=== PATIENT | female | born 1965 | race Caucasian/White ===

== ENCOUNTER 2016-12-26 15:29 | Emergency (ER) | payer OTHER ==
[~2016-12-26] VITALS: Wt 80.0 kg
--- NOTE | 2016-12-26 18:00 | ERD ---
ER Documentation Chief Complaint Date/Time DATE: 12/26/16 TIME: 17:52 Chief Complaint PAINFUL VAG BLEEDING SINCE 2 DAYS AGO. MILD AP. NO DYSURIA NOTED. HPI This is a 50 year old female who is perimenopausal without any medical problems presenting to the emergency room complaining of vaginal bleeding for 2 days. Patient states that yesterday she used about 9 pads per day, changing her pad every hour and today she states that it has been coming and going,using 4 pads so far. Patient states that yesterday she had right-sided pelvic pain and dizziness but it has resolved at this moment. She denies any fever, dysuria. She states that her last menstrual period was September 2015. She has not taken any medications for this. Past surgeries include 2 C-sections and tubal ligation. ROS All systems reviewed and are negative except as per history of present illness. Medications Home Meds Active Scripts Ciprofloxacin Hcl* (Ciprofloxacin Hcl*) 500 Mg Tablet, 500 MG PO BID for 7 Days , TAB Prov:MARQUISE REGAN PA-C 12/26/16 Phenazopyridine Hcl* (Pyridium*) 200 Mg Tab, 200 MG PO TID Y for URINARY PAIN, # 6 TAB Prov:MARQUISE REGAN PA-C 12/26/16 Ibuprofen* (Motrin*) 600 Mg Tab, 600 MG PO Q6H Y for PAIN AND OR ELEVATED TEMP, #30 TAB Prov:MARQUISE REGAN PA-C 12/26/16 Reported Medications [None] No Conflict Check 12/08/09 Allergies Allergies: Coded Allergies: Penicillins (Verified Allergy, Mild, RASH, 06/01/13) PMhx/Soc History of Surgery: Yes (C SECTION; TUBE TIED) Anesthesia Reaction: No Hx Neurological Disorder: No Hx Respiratory Disorders: No Hx Cardiac Disorders: No Hx Miscellaneous Medical Probl: Yes (ULCER) Hx Alcohol Use: No Hx Substance Use: No Hx Tobacco Use: No Smoking Status: Never smoker Physical Exam Vitals Vital Signs Date Time Temp Pulse Resp B/P Pulse Ox O2 Delivery O2 Flow Rate FiO2 12/26/16 15:32 98.6 100 16 120/80 98 Physical Exam GENERAL: well-developed/well-nourished, in no apparent distress, non-toxic appearing HENT: NC/AT, moist mucous membranes EYES: Conjunctiva normal NECK: Supple, no lymphadenopathy PULM: CTA bilaterally, no rales, rhonchi, or wheezing heard CV: Normal S1S2, RRR, good capillary refill GI: Soft, non-distended, non-tender to palpation Normal bowel sounds, no masses or organomegaly felt on exam No gross peritonitis, no bruits Negative Rovsing, negative Bullard, negative McBurney's point, Negative CVAT BACK: No masses EXT: No clubbing, cyanosis, or edema NEURO: Alert and Orientated SKIN: Intact, normal turgor PSYCH: Normal mood and mentation Result Diagram: 12/26/16 1806 Results 24 hrs Laboratory Tests Test 12/26/16 17:55 12/26/16 18:06 Urine Bacteria FEW Urine Bilirubin NEGATIVE Urine Clarity BLOODY Urine Color DK. RED Urine Glucose NEGATIVE% Urine Hemoglobin 3+ Urine Ketones TRACE Urine Leukocyte Esterase 1+ Urine Microscopic RBC >200/HPF Urine Microscopic WBC 2-5/HPF Urine Nitrite POSITIVE Urine Specific Howard >=1.030 Urine Total Protein 2+ Urine Urobilinogen 2.0 E.U./dL Urine pH 5.0 Basophils # 0.110^3/ul Basophils % 0.7% Eosinophils # 0.110^3/ul Eosinophils % 1.9% Hematocrit 37.2% Hemoglobin 12.6g/dl Lymphocytes # 2.710^3/ul Lymphocytes % 39.2% Mean Corpuscular Hemoglobin 31.3pg Mean Corpuscular Hemoglobin Concent 33.9g/dl Mean Corpuscular Volume 92.3fl Mean Platelet Volume 9.0fl Monocytes # 0.410^3/ul Monocytes % 5.8% Neutrophils # 3.610^3/ul Neutrophils % 52.1% Nucleated Red Blood Cells # 0.010^3/ul Nucleated Red Blood Cells % 0.0/100WBC Platelet Count 66876^3/UL Red Blood Count 4.0310^6/ul Red Cell Distribution Width 13.3% White Blood Count 6.910^3/ul Non-OB Pelvic Ultrasound: 1. Uterine leiomyomata, the largest approximately 4.9 cm and intramural. 2. Endometrial thickness of 8.3 mm is increased presuming a post menopausal state. Differential diagnostic possibilities would include endometrial hyperplasia, polyps, submucosal leiomyoma and endometrial carcinoma. Correlation to the patient's menstrual status is recommended. 3. Sonographically unremarkable left ovary. Nonvisualization of the right ovary. Procedures/MDM This is a 50 year old female who is perimenopausal without any medical problems presenting to the emergency room complaining of vaginal bleeding for 2 days. Which is likely due to uterine fibroid and a urinary tract infection. I have a low suspicion for anemia, pyelonephritis, nephrolithiasis. Patient appears well , she has stable vital signs. Her vaginal bleeding appears to be getting better today compared to yesterday when it started. Her abdominal exam was unremarkable. Patient is suitable for antibiotic, outpatient pain medication and to follow-up with her [facility] ASSOCIATE in the next couple days. Patient was found lab work was drawn. CBC did not show any evidence of leukocytosis or anemia. UA : +1 leukocyte esterase, positive nitrite, 2-5 WBC Pelvic Ultrasound: 1. Uterine leiomyomata, the largest approximately 4.9 cm and intramural. 2. Endometrial thickness of 8.3 mm is increased presuming a post menopausal state. Differential diagnostic possibilities would include endometrial hyperplasia, polyps, submucosal leiomyoma and endometrial carcinoma. Correlation to the patient's menstrual status is recommended. 3. Sonographically unremarkable left ovary. Nonvisualization of the right ovary. I have discussed these diagnostic findings with the patient, I discussed that this is likely due to fibroid however she will need to follow-up with her OB/ [employer] to rule out the other possibilities including endometrial hyperplasia or Carcinoma. Prescriptions Pyridium, ibuprofen and Cipro were provided. Discussed return to the ER for any worsening signs or symptoms. Patient understands and agrees with this plan Departure Diagnosis: Primary Impression: Fibroid, uterine Uterine leiomyoma location: intramural Qualified Code: D25.1 - Intramural leiomyoma of uterus Additional Impression: UTI (urinary tract infection) Urinary tract infection type: acute cystitis Hematuria presence: with hematuria Qualified Code: N30.01 - Acute cystitis with hematuria Condition: Stable MARQUISE REGAN PA-C Dec 26, 2016 18:00
[2016-12-26 18:13] LABS: ADD SCAN DIFF NO
[2016-12-26 18:16] LABS: BASOPHIL # 0.1 10^3/ul (0.0-0.1); BASOPHILS % 0.7 % (0.0-2.0); EOSINOPHILS # 0.1 10^3/ul (0.0-0.5); EOSINOPHILS % 1.9 % (0.0-7.0); HEMATOCRIT 37.2 % (37.0-47.0); HEMOGLOBIN 12.6 g/dl (12.0-16.0); LYMPHOCYTES # 2.7 10^3/ul (0.8-2.9); LYMPHOCYTES % 39.2 % (15.0-51.0); MEAN CORPUSCULAR HEMOGLOBIN 31.3 pg (29.0-33.0); MEAN CORPUSCULAR HGB CONC 33.9 g/dl (32.0-37.0); MEAN CORPUSCULAR VOLUME 92.3 fl (82.0-101.0); MONOCYTE # 0.4 10^3/ul (0.3-0.9); MONOCYTES % 5.8 % (0.0-11.0); NEUTROPHIL # 3.6 10^3/ul (1.6-7.5); NEUTROPHILS % 52.1 % (39.0-77.0); PLATELET COUNT 312 10^3/UL (140-415); RED BLOOD COUNT 4.03 10^6/ul (4.20-5.40); RED CELL DISTRIBUTION WIDTH 13.3 % (11.5-14.5); WHITE BLOOD COUNT 6.9 10^3/ul (4.8-10.8)
[2016-12-26 18:22] LABS: ADD UMIC YES; URINE BILIRUBIN (Dip) NEGATIVE (NEGATIVE); URINE BLOOD (Dip) 3+ (NEGATIVE); URINE COLOR DK. RED (YELLOW); URINE GLUCOSE (Dip) NEGATIVE (NEGATIVE); URINE KETONES (Dip) TRACE (NEGATIVE); URINE LEUKOCYTE ESTERASE (Dip) 1+ (NEGATIVE); URINE NITRITE (Dip) POSITIVE (NEGATIVE); URINE TOTAL PROTEIN (Dip) 2+ (NEGATIVE); URINE UROBILINOGEN (Dip) 2.0 E.U./dL (0.1-1.0)
--- NOTE | 2016-12-26 18:40 | RADRPT ---
PROCEDURE: US Pelvis. CLINICAL INDICATION: Vaginal bleeding TECHNIQUE: Multiple sonographic images of the pelvis were obtained utilizing a transabdominal and endovaginal technique. The images were reviewed on a PACS workstation. COMPARISON: None available FINDINGS: Uterus: Lobulated in contour with multiple uterine leiomyomata. The largest is intramural in the an terior uterine corpus measures 4.9 x 4.2 x 3.9 cm, the relatively hypoechoic mass lesion causing a b ulge in the anterior contour. Overall uterine size is estimated at 10 x 7.6 x 6.3 cm. Cervix: No abnormalities of significance are seen. Endometrium: Increased in thickness; 8.3 mm. This would be increased presuming a postmenopausal sta te. Right ovary / adnexa: The ovary is not visualized. Left ovary/adnexa: Normal in size estimated at 2.6 x 2.5 x 2.1 cm. No evidence for solid masses, no rmal blood flow on Doppler interrogation. Cul-de-sac: No evidence of free fluid. RPTAT:HJJR IMPRESSION: 1. Uterine leiomyomata, the largest approximately 4.9 cm and intramural. 2. Endometrial thickness of 8.3 mm is increased presuming a post menopausal state. Differential wilfredo gnostic possibilities would include endometrial hyperplasia, polyps, submucosal leiomyoma and endome trial carcinoma. Correlation to the patient's menstrual status is recommended. 3. Sonographically unremarkable left ovary. Nonvisualization of the right ovary. Physician Kay Date Time Electronically viewed and signed by Physician Kay on 12/26/2016 18:39 /
[2016-12-26 18:45] LABS: BACTERIA,URINE FEW; URINE RBCS >200 /HPF (0)
[2016-12-26] MEDS ORDERED: CIPR500T4 PO (18:53)
[2016-12-26] MEDS ORDERED: PHEN-538 PO (18:53)
[2016-12-26] MEDS ORDERED: IBUP-1542 PO (18:53)
== END 2016-12-26 19:04 | disposition home or self-care (01) ==
LOC: FTE 15:29
DX: D25.1 Intramural leiomyoma of uterus (principal); N30.01 Acute cystitis with hematuria
CPT/HCPCS: 76830; 76856; 81001; 85025; 86850; 86900; 86901; Z7502; 81003

== ENCOUNTER 2017-11-11 20:24 | Emergency (ER) | END 2017-11-11 20:50 | disposition home or self-care (01) ==

== ENCOUNTER 2018-10-27 17:47 | Emergency (ER) | payer OTHER ==
[~2018-10-27] VITALS: Wt 98.0 kg
[~2018-10-27 17:47] MED LIST: ACYC800T5 PO; CIPR500T4 PO; IBUP-1542 PO; MED4DP PO; PHEN-538 PO
[2018-10-27 17:49] VITALS: BP 142/89; PULSE 78; RESP 18
[2018-10-27] MEDS ORDERED: KETOROLAC 30 MG INJ IM STA (18:48)
--- NOTE | 2018-10-27 18:49 | ERD ---
ER Documentation Chief Complaint Chief Complaint DENTAL PAIN FROM MOLER EXTRACTION 10/17 HPI 52-year-old female, presents to the emergency department, complaining of persistent dental pain after having a molar extraction 10 days ago. The patient denies fevers, no chills, no difficulty swallowing. The patient has been taking ibuprofen with mild improvement of the symptoms. ROS All systems reviewed and are negative except as per history of present illness. Medications Home Meds Active Scripts Hydrocodone/Acetaminophen ([place] 5-325 Tablet) 1 Each Tablet, 1 EACH PO TID for 5 Days, #15 TAB Prov:LENA SOLORIO MD 10/27/18 Lorazepam* (Ativan*) 0.5 Mg Tablet, 0.5 MG PO Q8H PRN for ANXIETY, #10 TAB Prov:LENA SOLORIO MD 10/27/18 Clindamycin Hcl* (Clindamycin Hcl*) 300 Mg Capsule, 300 MG PO TID for 10 Days, CAP Prov:LENA SOLORIO MD 10/27/18 Methylprednisolone* (Medrol* DOSE PACK) 4 Mg/Dose-Pack Tab.ds.pk, 4 MG PO . DIRECTED, #1 PACKET Prov:DANIA BRICE PA-C 11/11/17 Acyclovir* (Zovirax*) 800 Mg Tablet, 800 MG PO 5 TIMES DAILY for 7 Days, TAB Prov:DANIA BRICE PA-C 11/11/17 Ciprofloxacin Hcl* (Ciprofloxacin Hcl*) 500 Mg Tablet, 500 MG PO BID for 7 Days, TAB Prov:MARQUISE REGAN PA-C 12/26/16 Phenazopyridine Hcl* (Pyridium*) 200 Mg Tab, 200 MG PO TID PRN for URINARY PAIN, #6 TAB Prov:MARQUISE REGAN PA-C 12/26/16 Ibuprofen* (Motrin*) 600 Mg Tab, 600 MG PO Q6H PRN for PAIN AND OR ELEVATED TEMP, #30 TAB Prov:MARQUISE REGAN PA-C 12/26/16 Reported Medications [None] No Conflict Check 12/08/09 Allergies Allergies: Coded Allergies: Penicillins (Verified Allergy, Mild, RASH, 06/01/13) PMhx/Soc History of Surgery: Yes (C SECTION; TUBE TIED) Anesthesia Reaction: No Hx Neurological Disorder: No Hx Respiratory Disorders: No Hx Cardiac Disorders: No Hx Miscellaneous Medical Probl: Yes (ULCER) Hx Alcohol Use: No Hx Substance Use: No Hx Tobacco Use: No Smoking Status: Never smoker FmHx Family History: No diabetes, No coronary disease Physical Exam Vitals Vital Signs Date Temp Pulse Resp B/P (MAP) Pulse Ox O2 O2 Flow FiO2 Time Delivery Rate 10/27/18 98.1 78 18 142/89 99 17:49 (106) Physical Exam Const: No acute distress Head: Right mandibular edema. Eyes: Normal Conjunctiva ENT: Normal External Ears, Nose and Mouth, no clinical evidence of dental abscess. Neck: Full range of motion. No meningismus. Resp: Clear to auscultation bilaterally Cardio: Regular rate and rhythm, no murmurs Abd: Soft, non tender, non distended. Normal bowel sounds Skin: No petechiae or rashes Back: No midline or flank tenderness Ext: No cyanosis, or edema Neur: Awake and alert Psych: Normal Mood and Affect Results 24 hrs Current Medications Medications Dose Sig/Judit Start Time Status Last (Trade) Ordered Route PRN Stop Time Admin Dose Reason Admin Ketorolac 30 mg ONCE STAT 10/27/18 DC 10/27/18 Tromethamine IM 18:48 18:58 (Toradol) 10/27/18 18:53 Lorazepam 0.5 mg ONCE ONCE 10/27/18 DC 10/27/18 (Ativan) PO 19:00 19:00 10/27/18 19:01 Procedures/MDM Differential diagnosis include but not limited to: Dental abscess, parotitis, sialoadenitis, lymphadenopathy, facial abscess. Low suspicion for systemic infection. Physical examination and clinical presentation consistent most likely with dental pain. During the ED course the patient remained stable, no new complaints. Clinical impression discussed with the patient who agrees with management. The patient is stable to be treated outpatient and will be discharged home. Some side effects of prescribed medications (headache, rash, nausea, vomiting, diarrhea, drowsiness, habituation, bleeding, hypertension, interactions with other medications) were reviewed. The patient was instructed to follow up with the primary care provider and dentist in the next 48h. If symptoms persist, worsen or new symptoms develop, then patient should return to the ED immediately. Instructions explained and given directly by me to the patient with acknowledgment and demonstrated understanding. Disclaimer: Inadvertent spelling and grammatical errors are likely due to EHR/dictation software use and do not reflect on the overall quality of patient care. Also, please note that the electronic time recorded on this note does not necessarily reflect the actual time of the patient encounter. Departure Diagnosis: Primary Impression: Pain, dental Condition: Stable Additional Instructions: Thank you very much for allowing us to participate in your care. Your health and safety is our top priority at [facility]. Call your primary care doctor TOMORROW for an appointment during the next 2-4 days and bring all the information and medications prescribed. Have prescriptions filled and follow precisely the directions on the label. If the symptoms get worse and your provider is unavailable, return to the Emergency Department immediately. LENA SOLORIO MD Oct 27, 2018 18:49
[2018-10-27] MEDS ORDERED: LORAZEPAM 0.5 MG TAB PO ONE (19:00)
[2018-10-27] MEDS ORDERED: HYDR-4011 PO ×2 (19:08→19:10)
[2018-10-27] MEDS ORDERED: LORA-441 PO (19:08)
[2018-10-27] MEDS ORDERED: CLIN300C10 PO (19:08)
== END 2018-10-27 19:17 | disposition home or self-care (01) ==
LOC: FTE 17:47
DX: K08.89 Other specified disorders of teeth and supporting structures (principal)
CPT/HCPCS: J1885; Z7610; 96372